=== PATIENT | male | born 1990 | race Caucasian/White ===

== ENCOUNTER 2021-05-04 21:00 | Emergency (ER) | payer SELFPAY ==
[~2021-05-04] VITALS: Ht 175.3 cm; Wt 72.6 kg
[2021-05-04 21:30] VITALS: BP 130/78
--- NOTE | 2021-05-04 21:32 | NUR ---
TO LOBBY A/W BED AMBULATORY
--- NOTE | 2021-05-04 21:42 | NUR ---
PATIENT TAKEN TO XRAY VIA W/C.
--- NOTE | 2021-05-04 23:03 | NUR ---
Patient being evaluated by physician.
[2021-05-04] MEDS ORDERED: KETOROLAC 60 MG/2 ML VIAL IM ONE (23:10)
--- NOTE | 2021-05-04 23:15 | NUR ---
MEDICATED PER ERMDS ORDER , TOLERATED WELL.
--- NOTE | 2021-05-04 23:30 | NUR ---
31 YO/M BIB SELF W C/O OF L ELBOW ACHEING PAIN 9/10 CONSTANT AND SWELLING S/P TRIP AND FALL. PER PATIENT, PATIENT TRIED TO GRAB ONTO SOMETHING HE FELL AND HIS L ELBOW/ARM BENT BACKWARDS. LIMITED ROM TO L ELBOW D/T PAIN. SWELLING NOTED AROUND L ELBOW, CAP REFIL <3SEC, +2 RADIAL PULSES. NO WOUNDS NOTED. DENIES OTHER INJURIES. PATIENT SITTING IN CHAIR, BREATHING EVEN AND UNLABORED. NAD NOTED, WILL CONTINUE TO MONITOR. PMH:DENIES NKA
--- NOTE | 2021-05-04 23:50 | NUR ---
DID CARA WRAP AND SLING TO PATIENT R ELBOW/ ARM PER ERMD ORDER.
[2021-05-05] MEDS ORDERED: NAPR-54 PO (00:10)
[2021-05-05 00:17] VITALS: BP 130/78
== END 2021-05-05 00:17 | disposition home or self-care (01) ==
LOC: MED 21:00
DX: S53.402A Unspecified sprain of left elbow, initial encounter (principal); Z79.1 Long term (current) use of non-steroidal anti-inflammatories (NSAID); W18.39XA Other fall on same level, initial encounter; Y92.89 Other specified places as the place of occurrence of the external cause; Y93.89 Activity, other specified; Y99.8 Other external cause status
CPT/HCPCS: 73080; 96372; 99283; J1885